=== PATIENT | male | born 1975 | race Caucasian/White ===

== ENCOUNTER 2024-02-22 10:47 | Emergency (ER) | payer OTHER, SELFPAY ==
[2024-02-22 11:05] VITALS: BP 128/84; PULSE 106; RESP 20; TEMP 38.2; O2SAT 98
--- NOTE | 2024-02-22 11:27 | ED_ITS ---
HPI - URI/Sore Throat General Chief Complaint: Upper Respiratory Infection Stated Complaint: Cough/Fever/Body Aches Time Seen by Provider: 02/22/24 11:27 Source: patient, RN notes reviewed and old records reviewed Mode of arrival: ambulatory Limitations: no limitations History of Present Illness HPI Narrative: 49-year-old male to [facility] complaint of fever, cough, chest congestion for 5 days. Patient reports that symptoms became acutely worse today, states he feels it is difficult to take a deep breath. Patient denies pertinent medical history, allergies, difficulty breathing, difficulty swallowing. Patient able to tolerate fluids by mouth. Patient resting in exam room in no acute distress, appears acutely ill. Respirations even and nonlabored. Patient able to speak in complete sentences without difficulty. Related Data Allergies Allergy/AdvReac Type Severity Reaction Status Date / Time No Known Drug Allergies Allergy Verified 04/06/12 10:37 Review of Systems Review of Systems: All systems reviewed & are unremarkable except as noted in HPI and below Constitutional: Constitutional: Reports as per HPI and Reports fever(s) Eyes: Eyes: Reports no additional eye complaints ENT: Reports system reviewed and no additional complaints, except as documented Cardiovascular: Cardiovascular: Reports no additional cardiovascular complaints, Denies chest pain and Denies dyspnea Respiratory: Respiratory: Reports as per HPI, Reports chest congestion, Reports cough and Denies dyspnea Musculoskeletal: Musculoskeletal: Reports no additional musculoskeletal co mplaints Neurologic: Reports system reviewed and no additional complaints, except as documented Psychiatric: Psychiatric: Reports no additional psychiatric complaints PMFSH Comments At the time of my signature, I reviewed and agree with the nursing past medical, surgical, social, and family history. There is no relevant family history pertinent to the patient complaint. Exam Const: General: cooperative, no acute distress, well developed, alert, ill appearing acutely, tired appearing, well groomed and well nourished Nutritio nal Appearance: well nourished Orientation/consciousness: patient oriented x3 Limitations: no limitations HENMT: Head: normal to inspection Ears: external ears normal Face/Nose/Sinus: Normal external nose present, Normal nares present, normal facial exam, No erythema and No edema Face and sinus: normal facial exam, no erythema and no edema Mouth: Yes Normal oral and palatal mucosa present Eyes: General: appearance normal, both eyes and all related structures Neck: Neck: normal visual inspection, full ROM and no meningeal signs Lymphatic: no lymphadenopathy noted and no lymphedema noted Chest: Chest palpation & inspection: normal inspection of the chest Resp: Effort & Inspection: normal respiratory effort and able to speak in complete sentences Auscultation: crackles on the right in the mid lung jackson Cardio: Jugular venous distension: no JVD Rate: regular rate Rhythm: regular rhythm Back/Spine/Pelvis: Cervical Spine: cervical ROM normal Skin: General skin exam: normal color, no rashes or lesions noted and turgor normal Neuro: General: patient oriented x3, gait normal, moves all extremities and no meningeal signs Speech: normal speech Gait exam (Neuro): Normal gait present Extrem: General: normal to inspection, full ROM and capillary refill normal Psych: Appearance: grossly normal and well kempt Course Course Emergency Course: Some parts of this dictation were generated by voice recognition software and may contain typographical and/or grammatical inaccuracies. Level of Care: Express Care Visit Vital Signs Vital signs: Vital Signs Temperature 38.2 C H 02/22/24 11:05 Pulse Rate 106 H 02/22/24 11:05 Respiratory Rate 20 02/22/24 11:05 Blood Pressure 128/84 02/22/24 11:05 Pulse Oximetry 98 02/22/24 11:05 Oxygen Delivery Room Air 02/22/24 11:05 Temperature 38.2 C H 02/22/24 11:05 Pulse Rate 106 H 02/22/24 11:05 Respiratory Rate 20 02/22/24 11:05 Blood Pressure 128/84 02/22/24 11:05 Pulse Oximetry 98 02/22/24 11:05 Oxygen Delivery Room Air 02/22/24 11:05 reviewed MDM - URI/Sore Throat MDM Narrative Medical decision making narrative: 49-year-old male to [facility] Care complaint of fever, cough, chest congestion for 5 days. Patient reports that symptoms became acutely worse today, states he feels it is difficult to take a deep breath. Patient denies pertinent medical history, allergies, difficulty breathing, difficulty swallowing. Patient able to tolerate fluids by mouth. Patient resting in exam room in no acute distress, appears acutely ill. Respirations even and nonlabored. Patient able to speak in complete sentences without difficulty. On exam, patient appears tired, acutely ill. on auscultation, crackles to rig ht mid lung. Exam otherwise unremarkable. Consistent with pneumonia. Patient is sitting comfortably in exam room nontoxic in appearance. Patient appropriate for outpatient treatment and follow-up. Discharge instructions reviewed with patient, as well as provided in writing per nursing staff. The instructions also include specific and strict return/GO TO THE ER as well as f/u information. All questions have been answered, and the patient deny any further questions with discharge and discharge plan. Some parts of this dictation were generated by voice recognition software and may contain typographical and/or grammatical inaccuracies. Differential Diagnosis Differential diagnosis: Likely upper respiratory infection, croup, otitis media, sinusitis, viral infection, bronchitis, influenza and pharyngitis Discharge Plan Discharge Clinical Impression: Pneumonia involving right lung Patient Disposition: Home, Self-Care Condition: Stable Instructions: Pneumonia (ED) Additional Instructions: -Alternate Tylenol and Motrin per package directions for fever or pain. -Antihistamine medication such as Benadryl at night and Zyrtec/Claritin/Yessi during the day can help improve symptoms. -Use Flonase twice a day for 5 days then daily to help reduce the inflammation and dry up your sinuses. -You can also use Sudafed or Mucinex. Be sure to drink plenty of water with these medications at least 8 ounces with every dose and it is important to drink 8 to 10 glasses of water per day. Water is a natural decongestant -Eat and drink things that are easy to swallow, like tea or soup, or popsicles. -Oral rinses such as: Salt water gargles and/or may use topical anesthetic (eg. Chloraseptic spray) or lozenges to relieve dryness or throat pain). -Frequent hand washing or hand retail sales teammate is one of the best ways to prevent spread of infection. -Using a vaporizer or humidifier at night will also help thin secretions and help with coughing up phlegm. -Follow up with primary care provider in 2-3 days if condition is not improving; or seek ER visit if you have trouble breathing, cannot drink enough fluids, have muffled voice, difficulty opening your mouth, or severe swelling. Prescriptions: New azithromycin 500 mg tablet 500 mg PO DAILY 5 Days Qty: 5 0RF prednisone 20 mg tablet See Rx Instructions .ROUTE .COMPLEX Qty: 9 0RF Rx Instructions: Take 40mg x3 days, 20mg x3 days Follow-up/Referrals: Gera,William Harden MD [Primary Care Provider] -
== END 2024-02-22 12:06 | disposition home or self-care (01) ==
PROVIDERS: Emergency Provider Nurse Practitioner Family; PCP Internal Medicine
DX: J18.9 Pneumonia, unspecified organism (principal)
CPT/HCPCS: 99213; G0463